=== PATIENT | male | born 1965 | race Caucasian/White ===

== ENCOUNTER 2016-11-09 23:42 | Inpatient (IN) | payer MEDICAID, OTHER ==
--- NOTE | 2016-11-10 00:43 | ED ---
Psych HPI - General Chief Complaint: Psychiatric Symptoms Stated Complaint: suicidal Time Seen by Provider: 11/10/16 00:03 Source: patient, RN notes reviewed Mode of arrival: ambulatory - History of Present Illness Initial Comments: 50-year-old male presents emergency department with need for psychiatric care. Patient has bipolar disorder. Patient has been having increased crying episodes. Patient recently moved to the area as well. Patient does not have any suicidal or homicidal thoughts at this time. Per the girlfriend the patient should've her house and instead that he needed to go to the ER patient' s stated that he was feeling overwhelmed to her. Patient this time states that he is feeling better. There has been a lot of medication changes recently. Patient currently does not have a psychiatrist in the area. Patient saw his primary care doctor today and they're currently working him up for some high blood pressure and some back issues. Patient states that he just is feeling down so he thought that he should be evaluated.Patient denies any recent fever, chills, shortness of breath, chest pain, back pain, abdominal pain, nausea vomiting, numbness or tingling, dysuria or hematuria, constipation or diarrhea, headaches or visual changes, or any other current symptoms. - Related Data Allergies Allergy/AdvReac Type Severity Reaction Status Date / Time No Known Allergies Allergy Verified 11/09/16 23:59 Review of Systems ROS Statement: Those systems with pertinent positive or pertinent negative responses have been documented in the HPI. ROS Other: All systems not noted in ROS Statement are negative. Past Medical History Past Medical History: GERD/Reflux, Hyperlipidemia, Hypertension, Thyroid Disorder Additional Past Medical History / Comment(s): chronic back pain, hypothroid History of Any Multi-Drug Resistant Organisms: None Reported Additional Past Surgical History / Comment(s): deviated septum Past Psychological History: Bipolar Smoking Status: Never smoker Past Alcohol Use History: None Reported Past Drug Use History: None Reported General Exam Limitations: no limitations General appearance: alert, in no apparent distress Head exam: Present: atraumatic, normocephalic, normal inspection Eye exam: Present: normal appearance, PERRL, EOMI. Absent: scleral icterus, conjunctival injection, periorbital swelling Respiratory exam: Present: normal lung sounds bilaterally. Absent: respiratory distress, wheezes, rales, rhonchi, stridor Cardiovascular Exam: Present: regular rate, normal rhythm, normal heart sounds. Absent: systolic murmur, diastolic murmur, rubs, gallop, clicks Extremities exam: Present: normal inspection, full ROM, normal capillary refill. Absent: tenderness, pedal edema, joint swelling, calf tenderness Back exam: Present: normal inspection Neurological exam: Present: alert, oriented X3 Psychiatric exam: Present: depressed Skin exam: Present: warm, dry, intact, normal color. Absent: rash Course Vital Signs 11/09/16 23:51 Temperature 98.2 F Pulse Rate 102 H Respiratory 18 Rate Blood Pressure 165/99 O2 Sat by Pulse 97 Oximetry Medical Decision Making - Medical Decision Making 50-year-old male presents emergency Department with a chief complaint of feeling down. This time the patient does not appear to be suffering from a acute medical emergencies. This time the patient is cleared to be evaluated by psychiatry. At this time patient will be admitted to psychiatry. - Lab Data Lab Results 11/10/16 11/10/16 Range/Units 00:15 01:45 Urine Opiates Screen Not Detected (NotDetected) Ur Oxycodone Screen Not Detected (NotDetected) Urine Methadone Screen Not Detected (NotDetected) Ur Propoxyphene Screen Not Detected (NotDetected) Ur Barbiturates Screen Not Detected (NotDetected) U Tricyclic Antidepress Not Detected (NotDetected) Ur Phencyclidine Scrn Not Detected (NotDetected) Ur Amphetamines Screen Not Detected (NotDetected) U Methamphetamines Scrn Not Detected (NotDetected) U Benzodiazepines Scrn Not Detected (NotDetected) Mills 0.3 mmol/L Urine Cocaine Screen Not Detected (NotDetected) U Marijuana (THC) Screen Not Detected (NotDetected) Disposition Clinical Impression: Depression Disposition: TRANSFER TO PSYCH HOSP/UNIT Time of Disposition: 02:52
[2016-11-10] MEDS ORDERED: MAGNESIUM HYDROXIDE 2,400 MG/10 ML CUP PO PRN (04:25)
[2016-11-10] MEDS ORDERED: MAG HYDROX/AL HYDROX/SIMETH 30 ML CUP PO PRN (04:25)
[2016-11-10] MEDS ORDERED: ZIPRASIDONE 20 MG VIAL IM PRN (04:25)
[2016-11-10] MEDS ORDERED: QUEtiapine 100 MG TAB PO PRN (04:31)
[2016-11-10] MEDS ORDERED: LORazepam 2 MG/ML SYRINGE IM PRN (04:36)
[2016-11-10] MEDS ORDERED: LORazepam 1 MG TAB PO PRN (04:36)
[2016-11-10] MEDS: ACETAMINOPHEN TAB 325 MG TAB PO PRN ×2 (05:09→10:22)
[2016-11-10] MEDS: LEVOTHYROXINE 75 MCG TAB PO SCH (05:39)
[2016-11-10] MEDS: METOPROLOL SUCCINATE (ER) 50 MG TAB.ER.24H PO SCH (08:02)
[2016-11-10] MEDS: PANTOPRAZOLE 40 MG TABLET PO SCH (08:02)
[2016-11-10] MEDS: amLODIPine 5 MG TAB PO SCH (08:02)
[2016-11-10 09:33] LABS: Basophils # (A) 0.1 k/uL (0-0.2); Basophils % (A) 1 %; CH 30.1; CHCM 32.6; Eosinophils # (A) 0.1 k/uL (0-0.7); Eosinophils % (A) 2 %; HCT 51.1 % (39.0-53.0); HDW 2.43; HGB 16.6 gm/dL (13.0-17.5); Luc # (Auto) 0.23; Luc % (Auto) 3; Lymphocytes # (A) 2.2 k/uL (1.0-4.8); Lymphocytes % (A) 32 %; MCH 30.1 pg (25.0-35.0); MCHC 32.4 g/dL (31.0-37.0); MCV 92.9 fL (80.0-100.0); Mean Platelet Volume 7.7; Monocytes # (A) 0.5 k/uL (0-1.0); Monocytes % (A) 6 %; Neutrophils % (A) 56 %; RDW 12.6 % (11.5-15.5); WBC 7.1 k/uL (3.8-10.6); WBC (Perox) 7.12
[2016-11-10 09:45] LABS: ALT 64 U/L (21-72); AST 41 U/L (17-59); Alkaline Phosphatase 80 U/L (38-126); Anion Gap 14 mmol/L; Blood Urea Nitrogen 15 mg/dL (9-20); Calcium 10.3 mg/dL (8.4-10.2); Carbon Dioxide 26 mmol/L (22-30); Chloride 102 mmol/L (98-107); Glucose 171 mg/dL (74-99); Non-African American GFR(MDRD) >60 (>60 ml/min/1.73 sqM); Potassium 4.5 mmol/L (3.5-5.1); Sodium 142 mmol/L (137-145); Total Protein 8.4 g/dL (6.3-8.2)
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
--- NOTE | 2016-11-10 19:05 | CONS ---
DATE OF CONSULTATION: 11/10/2016 REASON FOR CONSULTATION: Advice regarding hypertension, and multiple other medical issues requested by psychiatry. HISTORY OF PRESENT ILLNESS: This 50-year-old gentleman with a past history of gastroesophageal reflux disease, hypertension, hyperlipidemia, hypothyroidism, chronic back pain, history of bipolar being followed by Dr. Maria Guadalupe Joyce in the outpatient setting was admitted to the hospital for psychiatry evaluation. There is no history of fever, rigors or chills. There is no history of headache, loss of consciousness or seizures. The patient was also being worked up at the primary care physician's office. The patient recently moved to the area at this time. PAST MEDICAL HISTORY: 1. History of gastroesophageal reflux disease. 2. Hypertension. 3. Hyperlipidemia. 4. Hypothyroidism. 5. History of chronic back pain. 6. History of bipolar. Medications prior to admission include: 1. Hughes carbonate 300 mg p.o. b.i.d. 2. husk 1 capsule daily p.r.n. 3. Sudafed 30 mg daily p.r.n. 4. Trazodone 50 to 100 mg q.h.s. p.r.n. 5. Wellbutrin SR 200 mg p.o. daily. 6. Norvasc 5 mg p.o. daily. 7. Latuda 40 mg p.o. q.h.s. 8. Synthroid 75 mcg p.o. daily. 9. Omeprazole p.o. daily. 10. Toprol XL 50 mg p.o. daily. ALLERGIES: None. FAMILY HISTORY: No history of heart disease or strokes in the family. SOCIAL HISTORY: No history of smoking, no history of alcohol intake. REVIEW OF SYSTEMS: ENT: No diminished vision, no diminished hearing. CARDIOVASCULAR: No angina or palpitations. RESPIRATORY: No cough or hemoptysis. GI: No nausea. : No dysuria. Nervous system: No numbness or weakness. ALLERGIES/IMMUNOLOGY: No asthma or hayfever. HEMATOLOGY: No history of anemia. ENDOCRINE: No history of diabetes mellitus, hypothyroidism. CONSTITUTIONAL: As mentioned earlier. DERMATOLOGY: Negative. RHEUMATOLOGY: Negative. PSYCHIATRY: As mentioned earlier. PHYSICAL EXAMINATION: The patient is alert and oriented times three. Pulse is 102, blood pressure 165/99, respiratory rate 18, and temperature 98.1, pulse ox 97% on room air. Blood pressure improved to 140/93. HEENT: Conjunctivae normal. NECK: No jugular venous distention. CARDIOVASCULAR: S1, S2 muffled. RESPIRATORY: Breath sounds diminished at the bases. No rhonchi. No crackles. ABDOMEN: Soft, nontender, obese. No mass palpable. LEGS: No edema. No swelling. CENTRAL NERVOUS SYSTEM: Higher function as mentioned. Moves all 4 limbs. No focal motor or sensory deficit. LYMPHATICS: No lymph nodes palpable in the neck, axillae or groin. SKIN: No ulcer, rash or bleeding. LABS: CBC within normal limits. Glucose 171, total protein 8.4. ASSESSMENT: 1. Hypertension. 2. Hyperlipidemia. 3. Hypothyroidism. 4. Chronic back pain. 5. Degenerative joint disease. 6. Hypothyroidism. 7. Gastroesophageal reflux disease. 8. History of bipolar. 9. Increased random blood sugar. 10. Obesity with body mass index of 41.3. 11. FULL CODE. RECOMMENDATIONS AND DISCUSSION: In this 50-year-old gentleman who presented with multiple complex medical issues at this time I would recommend otherwise, the patient admitted with multiple medical problems, at this time I recommend to continue current medications, continue symptomatic treatment, monitor fasting blood glucose, hemoglobin A1c, rule out the possibility of diabetes mellitus. Otherwise, I would also recommend Accu-Cheks. Full work-up can be done in the outpatient setting. Patient already on beta blockers. I recommend Norvasc. Continue the home medications. Monitor the patient closely. Further recommendations to follow. A copy of this dictation is being forwarded to Dr. Maria Guadalupe Joyce who is the primary care physician. Please recommend the patient to follow up with Dr. Joyce after discharge. CASSIDYD
[2016-11-10] MEDS: LITHIUM CARBONATE ER 450 MG TABLET.ER PO SCH (20:03)
[2016-11-10] MEDS ORDERED: risperiDONE ODT 1 MG TAB PO SCH (21:00)
[2016-11-11] MEDS: LEVOTHYROXINE 75 MCG TAB PO SCH (06:05)
[2016-11-11] MEDS: PANTOPRAZOLE 40 MG TABLET PO SCH (09:30)
[2016-11-11] MEDS: amLODIPine 5 MG TAB PO SCH (09:30)
[2016-11-11] MEDS: LITHIUM CARBONATE ER 450 MG TABLET.ER PO SCH ×2 (09:31→21:07)
[2016-11-11] MEDS: METOPROLOL SUCCINATE (ER) 50 MG TAB.ER.24H PO SCH (09:31)
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
[2016-11-11 15:04] LABS: Hemoglobin A1C 5.5 % (4.2-6.1)
[2016-11-11] MEDS: ACETAMINOPHEN TAB 325 MG TAB PO PRN (16:35)
[2016-11-11] MEDS: clonazePAM 0.5 MG TAB PO SCH (21:07)
[2016-11-11] MEDS: risperiDONE ODT 2 MG TAB PO SCH (21:08)
[2016-11-12] MEDS: LEVOTHYROXINE 75 MCG TAB PO SCH (06:19)
[2016-11-12] MEDS: ACETAMINOPHEN TAB 325 MG TAB PO PRN (06:29)
[2016-11-12] MEDS: PANTOPRAZOLE 40 MG TABLET PO SCH (07:59)
[2016-11-12] MEDS: LITHIUM CARBONATE ER 450 MG TABLET.ER PO SCH ×2 (07:59→20:40)
[2016-11-12] MEDS: METOPROLOL SUCCINATE (ER) 50 MG TAB.ER.24H PO SCH (07:59)
[2016-11-12] MEDS: amLODIPine 5 MG TAB PO SCH (07:59)
[2016-11-12 10:08] LABS: Lithium 0.7 mmol/L; Potassium 4.6 mmol/L (3.5-5.1)
--- NOTE | 2016-11-12 10:19 | P.PN ---
Progress Note - Text Interval history: The patient was laying in his bed with C-PAP machine,,,did follow-me to interview office The patient stated that he had good visit with his mother ,sister and girl friend ,he endorses having anxiety this Am because "I WAS DELUSIONAL DURING BREAKFAST ,I WAS SEEING PEOPLE FACES FROM MY PAST", patient stated that he is able to know that "WAS NOT REALITY",he reports that he has some anxiety because it did remind him of his first psychotic break at age 29,still reporting racing thoughts and irrational thinking "I HAVE TO BE PREPARED FOR ANY QUESTION ,I AM KEEPING NOTES FOR EVERYTHING ",he stated that he does not participate in group because "I AM TRYING TO ANALYZE MYSELF" PER NURSING STAFF:patient slept 6 hours last night ,no participation in groups, no interaction with other peers Mental status exam: The patient is alert he does not appear lethargic , He is dressed in his own clothing. He is calmly seated in the chair.,he was cooperative ,speech is coherent ,at times circumstantial ,bizarre comments , reports "JAMIE ROGELIO EXP."this morning Insight and judgment are impaired. have . He demonstrates no aggressive behavior . He is reporting no auditory or visual hallucinations ,seems very paranoia and suspicious and preoccupied,he is reporting no suicidal or homicidal ideation. Plan: Will increase Risperdal ,will check lithium and lytes ,encourage participation in milieu ,will continue inpatient to monitor his thought disorder and any side-effect from medication
[2016-11-12] MEDS: clonazePAM 0.5 MG TAB PO SCH (20:40)
[2016-11-12] MEDS: risperiDONE ODT 2 MG TAB PO SCH (21:04)
[2016-11-13] MEDS: ACETAMINOPHEN TAB 325 MG TAB PO PRN (04:45)
[2016-11-13] MEDS: LEVOTHYROXINE 75 MCG TAB PO SCH (05:34)
[2016-11-13 08:00] LABS: Glucose,Whole Blood 108 mg/dL (75-99)
--- NOTE | 2016-11-13 08:07 | P.PN ---
Progress Note - Text Interval history: The patient was in library and followed me to the office , reports that he slept from 9 PM and had,,did follow-me to interview office The patient reports that he has been up since 4 AM ,reports feeling tired this morning and "BORED",he denies any current depressive symptoms ,denies any psychotic features however he presents with odd thinking and odd behavior , stated that he is not interested in groups because:I NEED INDIVIDUAL THERAPY TO ANALYSE ME A CASE STUDY" LITHIUM LEVEL:0.7 VITALS:stable Mental status exam: The patient is alert he does not appear lethargic , He is dressed in his own clothing. He is calmly seated in the chair.,he was cooperative ,speech is coherent ,at times circumstantial ,bizarre comments , He demonstrates no aggressive behavior . He is reporting no auditory or visual hallucinations ,denies any delusion or ideas of reference or thought insertion,he is reporting no suicidal or homicidal ideation.,insight is improving Plan: Continue current medication ,encourage participation in milieu ,will continue inpatient to monitor his thought disorder and any side-effect from medication
[2016-11-13] MEDS: amLODIPine 5 MG TAB PO SCH (08:41)
[2016-11-13] MEDS: LITHIUM CARBONATE ER 450 MG TABLET.ER PO SCH ×2 (08:41→20:52)
[2016-11-13] MEDS: METOPROLOL SUCCINATE (ER) 50 MG TAB.ER.24H PO SCH (08:41)
[2016-11-13] MEDS: PANTOPRAZOLE 40 MG TABLET PO SCH (08:44)
[2016-11-13] MEDS ORDERED: risperiDONE 2 MG TAB PO SCH (09:00)
[2016-11-13] MEDS: risperiDONE ODT 2 MG TAB PO SCH ×2 (09:56→20:52)
[2016-11-13] MEDS: clonazePAM 0.5 MG TAB PO SCH (20:51)
[2016-11-14] MEDS: LEVOTHYROXINE 75 MCG TAB PO SCH (05:53)
[2016-11-14] MEDS: LITHIUM CARBONATE ER 450 MG TABLET.ER PO SCH ×2 (09:00→20:49)
[2016-11-14] MEDS: PANTOPRAZOLE 40 MG TABLET PO SCH (09:00)
[2016-11-14] MEDS: amLODIPine 5 MG TAB PO SCH (09:00)
[2016-11-14] MEDS: METOPROLOL SUCCINATE (ER) 50 MG TAB.ER.24H PO SCH (09:00)
[2016-11-14] MEDS: risperiDONE ODT 2 MG TAB PO SCH ×2 (09:01→20:49)
[2016-11-14] MEDS ORDERED: FLUTICASONE 50MCG/SPRAY NASAL 16GM EA NOSTRIL PRN (12:25)
--- NOTE | 2016-11-14 12:38 | P.PN ---
Progress Note - Text Interval history: The patient was in library and followed me to the office , he stated that he is having slurred speech and nasal congestion ,very somatic preoccupied ,he reports that he is having hard time to use his C-PAP because "SOMEONE NEED TO FIX MASK",slept 6 hours last night but feeling more tired and fatigued ,said that he has been napping "FOUR OR FIVE TIMES",denies any delusion ,paranoia or idea of reference ,does not endorse any suicidal or homicidal ideation ,he attended two groups since yesterday VITALS:stable Mental status exam: The patient is alert he does not appear lethargic , speech is not slurred, He is dressed in his own clothing. He is calmly seated in the chair.,he was cooperative ,speech is coherent ,at times circumstantial ,bizarre comments , He demonstrates no aggressive behavior . He is reporting no auditory or visual hallucinations ,denies any delusion or ideas of reference or thought insertion,he is reporting no suicidal or homicidal ideation.,insight is improving Plan: Decrease Risperdal and Klonopin to minimize sedation ,encourage participation in milieu ,will continue inpatient to monitor his thought disorder and any side-effect from medication
[2016-11-14] MEDS: clonazePAM 0.5 MG TAB PO SCH (20:49)
[2016-11-15] MEDS: ACETAMINOPHEN TAB 325 MG TAB PO PRN ×2 (03:18→15:43)
[2016-11-15] MEDS: LEVOTHYROXINE 75 MCG TAB PO SCH (06:29)
--- NOTE | 2016-11-15 08:25 | P.PN ---
Progress Note - Text Interval history: The patient was in hallway and followed me to the office , he stated that he did participate in 2 groups yesterday ,his girlfriend parent did visit him yesterday,denies any psychotic features , did not endorse any bizarre thoughts or comment, does not isolate himself as before ,reports feeling tired , sluggish and "I AM NOT ABLE TO TALK A LOT ON PHONE BEFORE ,MY MIND IS NOT RACING " PER NURSING STAFF ,slept 5 hours ,having difficulty using his C-pap VITALS:stable Mental status exam: The patient is alert he does not appear lethargic He is dressed in his own clothing. He is calmly seated in the chair.,he was cooperative ,speech is non spontaneous but coherent ,affect is flat. He demonstrates no aggressive behavior . He is reporting no auditory or visual hallucinations ,denies any delusion or ideas of reference or thought insertion ,he is reporting no suicidal or homicidal ideation.,insight is improving Plan: Discontinue AM Risperdal to minimize sedation ,encourage participation in milieu ,will continue inpatient to monitor his thought disorder and any side- effect from medication,family meeting today with his girlfriend to discuss post- discharge plan
[2016-11-15] MEDS ORDERED: risperiDONE ODT 1 MG TAB PO SCH (09:00)
[2016-11-15] MEDS: LITHIUM CARBONATE ER 450 MG TABLET.ER PO SCH ×2 (09:23→20:05)
[2016-11-15] MEDS: METOPROLOL SUCCINATE (ER) 50 MG TAB.ER.24H PO SCH (09:23)
[2016-11-15] MEDS: amLODIPine 5 MG TAB PO SCH (09:23)
[2016-11-15] MEDS: PANTOPRAZOLE 40 MG TABLET PO SCH (09:23)
[2016-11-15] MEDS: clonazePAM 0.5 MG TAB PO SCH (20:05)
[2016-11-15] MEDS: risperiDONE ODT 2 MG TAB PO SCH (20:06)
[2016-11-16 01:06] VITALS: TEMP 97.7
[2016-11-16] MEDS: ACETAMINOPHEN TAB 325 MG TAB PO PRN ×2 (01:09→04:52)
[2016-11-16] MEDS: LEVOTHYROXINE 75 MCG TAB PO SCH ×2 (04:52→06:04)
[2016-11-16] MEDS: amLODIPine 5 MG TAB PO SCH (08:08)
[2016-11-16] MEDS: LITHIUM CARBONATE ER 450 MG TABLET.ER PO SCH (08:08)
[2016-11-16] MEDS: METOPROLOL SUCCINATE (ER) 50 MG TAB.ER.24H PO SCH (08:08)
[2016-11-16] MEDS: PANTOPRAZOLE 40 MG TABLET PO SCH (08:08)
[2016-11-16 08:10] VITALS: BP 114/66; PULSE 79; RESP 16
[2016-11-16] MEDS ORDERED: clonazePAM 0.5 MG TAB PO PRN (09:25)
--- NOTE | 2016-11-17 11:51 | DS ---
DATE OF ADMISSION: 11/10/2016 DATE OF DISCHARGE: 11/16/2016 CONSULT PHYSICIAN: Oswald. Consulting provider is Dr. Gonzalez. Consult reason for medical management. Brief summary of the admission: Patient is 50-year-old male with history of bipolar disorder. He presented to the emergency room for depression, mood swing and paranoia. Patient stated that he was stable up to 3 or 4 weeks ago, and he started having trouble sleeping at night, racing thought, easily distraction, paranoia, suspicious, having difficulty to trust people, especially the people that he does not know, but he denied any suicidal or homicide ideation. Patient stated that for the last 3 weeks prior to his admission he was on edge, irritable, not sleeping at all at night, poor appetite with weight loss of 13 pounds over 3 weeks, easily overwhelmed with low frustration tolerance. For further history and physical examination, please refer that to my initial history and physical exam. HOSPITAL COURSE: The patient was admitted to the mental health unit on a voluntary basis. Once he was admitted to the mental health unit, I did review his psychiatric symptoms and his psychiatric medication. Patient was on lithium 300 twice a day. Blood lithium level was 0.3, trazodone 50 to 100 mg at bedtime, Latuda 40 mg at bedtime and Wellbutrin 400 mg daily. I did discuss with the patient treatment option and he did agree to discontinue Wellbutrin and Latuda and time to put him on different atypical antipsychotic and to increase his lithium. So we did titrate lithium up to 450 twice a day. His blood lithium level was 0.7 on this dose. We gradually increased Risperdal up to 4 mg at bedtime. Patient was having restless feeling, especially at night and he was complaining of interrupted sleep; however, he stated that he has sleep apnea and he has been noncompliant with CPAP. I added a low-dose of Klonopin to decrease that restless feeling. Initially, patient was not participating in group therapy. Even having difficulty to interact with other patient, but on November 13, patient started to show improvement as he started to get less paranoia, participating in group therapy, even in the last group notes, patient was attending, participating at time hyperverbal but easy to direct, at time intrusive, but does respect limit setting. We did have family meeting with his girlfriend of 7 years Marii and I did discuss with her the diagnosis as she was concerned that I diagnosed the patient with schizoaffective disorder and I did answer her and explained to her all the psychotropic medications and the treatment plan and I discussed discharge planning. She did report that she does feel that the patient is much better and he is not hyperverbal, "He was hypomanic before he came here, but now he is much better." Mental status examination at the time of the discharge: Patient is alert, he was sitting calmly, good eye contact. Speech is less circumstantial, decreased in productivity. His thought process mainly linear; however, at times he gets circumstantial but very easy to redirect. He is reporting no homicidal or suicidal ideation, intent or plan. He does not feel hopeless. He does not have any evidence of hypomania or mahendra. There is no evidence of psychosis. His insight and judgment improving. There is no verbal or physical aggression observed. DISCHARGE DIAGNOSES: 1. Schizoaffective disorder, bipolar type in partial remission with medication. 2. Sleep apnea. 3. Hypertension, hyperlipidemia, hypothyroidism, degenerative joint disease, gastroesophageal reflex disease. The lab at the time of his discharge, CBC with ( ) are normal. Electrolytes normal. His fasting blood at the time of admission was 171; however, it did go down to 108. We did check his hemoglobin A1c, and it is normal, it is 5.5. He lithium level is 0.7. Vital signs at the time of the discharge, temperature 97.7, pulse 79, respirations 16, blood pressure 114/66. DISCHARGE INSTRUCTION: 1. Patient will be discharged from the mental health unit today to return back home. 2. Patient to continue outpatient counseling and he has an outpatient appointment at [facility] on November 18 at 3 p.m. 3. Patient has to see his primary care provider, Maria Guadalupe Joyce in 1 or 2 days for medical management of his medical problem. 4. I do recommend the patient will be referred to Sleep Clinic to rule out narcolepsy and also to evaluate the severity of his sleep apnea. 5. I do recommend to monitor closely his lithium level and thyroid function test and electrolyte on a regular basis. Patient was given one-month supply for lithium extended release 450 twice a day, Risperdal 4 mg at bedtime, Klonopin 0.25 at bedtime as needed for restless feeling or insomnia. Patient does not report any hopeless or helpless feeling. Does not have access to firearms. Denied any suicidal or homicidal ideation. There is no eminent safety risk and he is appropriate for transition to outpatient care. He was instructed to return to the emergency room if any acute safety concern. Patient's condition at the time of the discharge, stable.
== END 2016-11-16 12:40 | disposition home or self-care (01) | DRG 885 ==
LOC: EC 23:42 → 3MHU 11-10 02:56
PROVIDERS: ADMIT Psychiatry & Neurology Psychiatry; ATTEND Psychiatry & Neurology Psychiatry
DX: F25.0 Schizoaffective disorder, bipolar type (principal); Z68.41 Body mass index [BMI] 40.0-44.9, adult; I10 Essential (primary) hypertension; F22 Delusional disorders; E03.9 Hypothyroidism, unspecified; E66.9 Obesity, unspecified; E78.5 Hyperlipidemia, unspecified; F41.9 Anxiety disorder, unspecified; G47.30 Sleep apnea, unspecified; G89.29 Other chronic pain; K21.9 Gastro-esophageal reflux disease without esophagitis; M19.90 Unspecified osteoarthritis, unspecified site; Z79.899 Other long term (current) drug therapy; Z91.19 Patient's noncompliance with other medical treatment and regimen
CPT/HCPCS: 36415; 80051; 80053; 80178; 80306; 82075; 82947; 83036; 84443; 85025; 93005; 99285

== ENCOUNTER 2016-12-01 11:50 | Emergency (ER) | payer OTHER ==
[2016-12-01 12:06] VITALS: RESP 18; TEMP 97.9
--- NOTE | 2016-12-01 12:20 | ED ---
Psych HPI - General Chief Complaint: Psychiatric Symptoms Stated Complaint: mental health Time Seen by Provider: 12/01/16 12:10 Source: patient, RN notes reviewed Mode of arrival: ambulatory - History of Present Illness Initial Comments: 50 yo male presents to the Er with cc of racing thoughts and pressured decision making. Patient does suffer from bipolarpolar disorder and schizoaffective disorder. Patient states that he does not believe his medications are working. Patient denies any suicidal or homicidal ideation. Patient states that he went to see a psychiatrist but she was not there so he came here. Patient states that he just needs something done with these medications. Patient states he is not currently having any other symptoms at this time.Patient denies any recent fever, chills, shortness of breath, chest pain, back pain, abdominal pain, nausea vomiting, numbness or tingling, dysuria or hematuria, constipation or diarrhea, headaches or visual changes, or any other current symptoms. - Related Data Home Medications Medication Instructions Recorded Confirmed Levothyroxine Sodium [Synthroid] 75 mcg PO DAILY 11/10/16 12/01/16 Metoprolol Succinate (ER) [Toprol 50 mg PO DAILY 11/10/16 12/01/16 XL] Omeprazole 20 mg PO DAILY 11/10/16 12/01/16 amLODIPine [Norvasc] 5 mg PO DAILY 11/10/16 12/01/16 Fluticasone Nasal [place] [Flonase 2 spr EA NOSTRIL HS 12/01/16 12/01/16 Nasal [place]] Previous Rx's Medication Instructions Recorded [place] Carbonate ER [Lithobid] 450 mg PO BID 30 Days 11/16/16 clonazePAM [KlonoPIN] 0.25 mg PO HS PRN #15 tab 11/16/16 risperiDONE ODT [RisperDAL M-TAB] 4 mg PO HS 30 Days 11/16/16 diphenhydrAMINE [Benadryl] 25 mg PO BID #30 capsule 12/01/16 Allergies Allergy/AdvReac Type Severity Reaction Status Date / Time No Known Allergies Allergy Verified 12/01/16 13:29 Review of Systems ROS Statement: Those systems with pertinent positive or pertinent negative responses have been documented in the HPI. ROS Other: All systems not noted in ROS Statement are negative. Past Medical History Past Medical History: GERD/Reflux, Hyperlipidemia, Hypertension, Thyroid Disorder Additional Past Medical History / Comment(s): chronic back pain, hypothyroid History of Any Multi-Drug Resistant Organisms: None Reported Additional Past Surgical History / Comment(s): deviated septum Past Anesthesia/Blood Transfusion Reactions: No Reported Reaction Past Psychological History: Bipolar Smoking Status: Never smoker Past Alcohol Use History: None Reported Additional Past Alcohol Use History / Comment(s): Pt. denies any alcohol use. Past Drug Use History: None Reported Additional Drug Use History / Comment(s): Pt. denies any current or a history of drug use. UDS negative - Past Family History Father Family Medical History: No Reported History Mother Family Medical History: No Reported History General Exam Limitations: no limitations General appearance: alert, in no apparent distress Head exam: Present: atraumatic, normocephalic, normal inspection Respiratory exam: Present: normal lung sounds bilaterally. Absent: respiratory distress, wheezes, rales, rhonchi, stridor Cardiovascular Exam: Present: regular rate, normal rhythm, normal heart sounds. Absent: systolic murmur, diastolic murmur, rubs, gallop, clicks Neurological exam: Present: alert, oriented X3, CN II-XII intact Psychiatric exam: Present: agitated Skin exam: Present: warm, dry, intact, normal color. Absent: rash Course Vital Signs 12/01/16 12/01/16 12:02 15:02 Temperature 97.9 F Pulse Rate 76 66 Respiratory 18 18 Rate Blood Pressure 137/81 174/98 O2 Sat by Pulse 98 97 Oximetry Medical Decision Making - Medical Decision Making 50-year-old male presents to the emergency department seeking medication adjustment. Patient does admit to racing thoughts and pressured decision- making. This patient does not appear to be suffering acute medical emergencies. Sensation is clear to be evaluated by psychiatry. Patient was evaluated by psychiatry here. This and they are making discharged home. Recommend Benadryl to help with the patient's side effects. Patient agreed to this plan. He does contract all questions have been answered. He will be discharged home. - Lab Data Lab Results 12/01/16 12/01/16 Range/Units 12:48 13:12 Urine Opiates Screen Not Detected (NotDetected) Ur Oxycodone Screen Not Detected (NotDetected) Urine Methadone Screen Not Detected (NotDetected) Ur Propoxyphene Screen Not Detected (NotDetected) Ur Barbiturates Screen Not Detected (NotDetected) U Tricyclic Antidepress Not Detected (NotDetected) Ur Phencyclidine Scrn Not Detected (NotDetected) Ur Amphetamines Screen Not Detected (NotDetected) U Methamphetamines Scrn Not Detected (NotDetected) U Benzodiazepines Scrn Not Detected (NotDetected) [place] 0.6 mmol/L Urine Cocaine Screen Not Detected (NotDetected) U Marijuana (THC) Screen Not Detected (NotDetected) Disposition Clinical Impression: Depression Disposition: HOME SELF-CARE Condition: Stable Instructions: Depression (ED) Additional Instructions: Please use medication as discussed. Please follow up with family doctor if symptoms have not improved over the next two days. Please return to the emergency room if your symptoms increase or worsen or for any other concerns. Prescriptions: diphenhydrAMINE [Benadryl] 25 mg PO BID #30 capsule Referrals: Maria Guadalupe Joyce MD [Primary Care Provider] - 1-2 days Time of Disposition: 15:23
[2016-12-01 15:04] VITALS: BP 174/98; PULSE 66
== END 2016-12-01 15:32 | disposition home or self-care (01) ==
LOC: EC 11:50
DX: F32.9 Major depressive disorder, single episode, unspecified (principal); I10 Essential (primary) hypertension; K21.9 Gastro-esophageal reflux disease without esophagitis; E03.9 Hypothyroidism, unspecified; Z79.52 Long term (current) use of systemic steroids; Z79.899 Other long term (current) drug therapy
CPT/HCPCS: 36415; 80178; 80306; 82075; 99285

== ENCOUNTER 2017-01-05 19:51 | Emergency (ER) | payer MEDICAID, OTHER ==
[2017-01-05 20:13] VITALS: BP 143/84; PULSE 80; RESP 18; TEMP 98
--- NOTE | 2017-01-05 20:26 | ED ---
General Adult HPI - General Chief complaint: ENT Stated complaint: poss toxic paint fumes Time Seen by Provider: 01/05/17 20:17 Source: patient, RN notes reviewed Mode of arrival: ambulatory Limitations: no limitations - History of Present Illness Initial comments: 51-year-old male presents emergency Department chief complaint of pain fumes exposure. 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 Patient states that he's having difficulty with nasal congestion sinus pressure and ALLERGIES related to the fumes. Patient states that his work will not give him a respirator or mask. Patient states he cannot wear CPAP machine at nighttime because of the congestion. He has been using Flonase and Benadryl with no relief. Patient states he does feel better when he is not there states is gets worse every day he goes to work. - Related Data Home Medications Medication Instructions Recorded Confirmed Levothyroxine Sodium [Synthroid] 75 mcg PO DAILY 11/10/16 12/01/16 Metoprolol Succinate (ER) [Toprol 50 mg PO DAILY 11/10/16 12/01/16 XL] Omeprazole 20 mg PO DAILY 11/10/16 12/01/16 amLODIPine [Norvasc] 5 mg PO DAILY 11/10/16 12/01/16 Fluticasone Nasal [place] [Flonase 2 spr EA NOSTRIL HS 12/01/16 12/01/16 Nasal [place]] Previous Rx's Medication Instructions Recorded [place] Carbonate ER [Lithobid] 450 mg PO BID 30 Days 11/16/16 clonazePAM [KlonoPIN] 0.25 mg PO HS PRN #15 tab 11/16/16 risperiDONE ODT [RisperDAL M-TAB] 4 mg PO HS 30 Days 11/16/16 diphenhydrAMINE [Benadryl] 25 mg PO BID #30 capsule 12/01/16 methylPREDNISolone [Medrol Dose 4 mg PO DIRECTED #1 pack 01/05/17 Pack] Allergies Allergy/AdvReac Type Severity Reaction Status Date / Time No Known Allergies Allergy Verified 01/05/17 20:13 Review of Systems ROS Statement: Those systems with pertinent positive or pertinent negative responses have been documented in the HPI. ROS Other: All systems not noted in ROS Statement are negative. Past Medical History Past Medical History: GERD/Reflux, Hyperlipidemia, Hypertension, Sleep Apnea/ CPAP/BIPAP, Thyroid Disorder Additional Past Medical History / Comment(s): chronic back pain, hypothyroid History of Any Multi-Drug Resistant Organisms: None Reported Additional Past Surgical History / Comment(s): deviated septum Past Anesthesia/Blood Transfusion Reactions: No Reported Reaction Past Psychological History: Bipolar Smoking Status: Never smoker Past Alcohol Use History: None Reported Additional Past Alcohol Use History / Comment(s): Pt. denies any alcohol use. Past Drug Use History: None Reported Additional Drug Use History / Comment(s): Pt. denies any current or a history of drug use. UDS negative - Past Family History Father Family Medical History: No Reported History Mother Family Medical History: No Reported History General Exam Limitations: no limitations General appearance: alert, in no apparent distress Head exam: Present: atraumatic, normocephalic, normal inspection Eye exam: Present: normal appearance, PERRL, EOMI. Absent: scleral icterus, conjunctival injection, periorbital swelling ENT exam: Present: normal oropharynx, mucous membranes moist, TM's normal bilaterally, normal external ear exam. Absent: normal exam (Inflammation of the nostrils noted in inflamed turbinates, congestion) Neck exam: Present: normal inspection, full ROM. Absent: tenderness, meningismus, lymphadenopathy Respiratory exam: Present: normal lung sounds bilaterally. Absent: respiratory distress, wheezes, rales, rhonchi, stridor Cardiovascular Exam: Present: regular rate, normal rhythm, normal heart sounds. Absent: systolic murmur, diastolic murmur, rubs, gallop, clicks Skin exam: Present: warm, dry, intact, normal color. Absent: rash Course Vital Signs 01/05/17 20:10 Temperature 98 F Pulse Rate 80 Respiratory 18 Rate Blood Pressure 143/84 O2 Sat by Pulse 97 Oximetry Medical Decision Making - Medical Decision Making 51-year-old male presented for fume exposure at work. Patient is having congestion ALLERGY type symptoms related to the fumes. Patient does need a respirator though work is not providing this. Patient will be referred to S for follow-up and care of getting him a respirator mask at work. Patient was placed on a steroid for ALLERGIES at this time as he is currently using Benadryl and Flonase. Disposition Clinical Impression: Environmental allergies, Inhalation of noxious fumes Disposition: HOME SELF-CARE Condition: Stable Instructions: Allergies (ED) Additional Instructions: Please return to the Emergency Department if symptoms worsen or any other concerns. Follow up with [facility] for further care and treatment Prescriptions: methylPREDNISolone [Medrol Dose Pack] 4 mg PO DIRECTED #1 pack Referrals: Maria Guadalupe Joyce MD [Primary Care Provider] - 1-2 days Time of Disposition: 20:26
== END 2017-01-05 20:37 | disposition home or self-care (01) ==
LOC: EC 19:51
DX: J68.9 Unspecified respiratory condition due to chemicals, gases, fumes and vapors (principal); K21.9 Gastro-esophageal reflux disease without esophagitis; I10 Essential (primary) hypertension; E03.9 Hypothyroidism, unspecified; Z79.899 Other long term (current) drug therapy
CPT/HCPCS: 99283

== ENCOUNTER → 2017-01-12 | Outpatient (CLI) | payer OTHER ==
--- NOTE | 2017-01-12 20:48 | CONS ---
DATE OF CONSULTATION: 01/12/2017 This patient is 51 diagnosed having sleep apnea more than 15 years ago. Has been on treatment, his most recent study was done through a sleep center in ( [place], [place]. Currently he has [employer] ( ) on a [employer] unit which is set at a pressure of 11 cm of water. The patient was given also a Mirage Quattro full face mask. He tells me that he is unable to breathe through the machine. He is having some issues with nasal congestion and stuffiness and he has been utilizing a combination of Flonase and antihistamines, [id number] and recently was given a Medrol Dosepak. His history is not much reliable knowing that he seems to have underlying psychotic disorder/schizophrenia/bipolar disorder. However, I checked his compliance data and the patient has not been using the machine adequately and he is also not putting adequate hours on the CPAP therapy and he tells me that the pressure is sometimes adequate at other times high and I am unable to fully establish an impression as far as CPAP needs. I inspected this patient's full face mask and he does have good fit without any significant leaks around his mask. Unfortunately, I do not have any of his sleep studies that were done earlier on him. He does however, have difficulty with obstructive sleep apnea and he reports to snore, stops breathing and he suffers from chronic tiredness, fatigue and sleepiness if he does not use his CPAP machine. He wakes up with a dry mouth in addition and he gets frequent urination and wakes up frequently in the middle of night gasping for air. Typically goes to bed around 8:30 p.m., wakes up at 4:15 a.m. in the morning and he is averaging around 7 to 8 hours of sleep. His Montpelier score is at 24. He states to have gained around 10 pounds over the past one year. PAST MEDICAL HISTORY: 1. Obstructive sleep apnea. 2. Obesity. 3. Schizophrenia/bipolar disorder. 4. Hypertension. 5. Chronic allergic rhinitis and nasal congestion and stuffiness. 6. Heartburn. Surgical history includes surgery for deviated nasal septum. Drug allergies are none. Outpatient medication list includes: 1. [place] 300 milligrams p.o. daily in the morning and 600 at nighttime. 2. Risperdal 4 mg at bedtime. 3. Metoprolol. 4. Amlodipine. 5. Benadryl as needed. 6. Omeprazole 20 mg p.o. daily. SOCIAL HISTORY: Nonsmoker. No history of alcoholism. No history of IV drugs. FAMILY HISTORY: Negative for sleep apnea. REVIEW OF SYSTEMS: Twelve-point review of systems was done. Positive findings were all mentioned above in the history of present illness. No other complaints other than the things mentioned above. BP is 127/74, pulse 76, respirations 16, temperature 98.2, saturation 96% on room air. BMI is 46. Weight is 312. Height is 5 foot 9. Neck size 19-3/4 inches. GENERAL APPEARANCE: Calm, comfortable. HEENT: Short neck, crowding of the posterior pharynx. There is no goiter, neck masses. LUNGS: Clear to auscultation. HEART: Heart sounds are regular rate and rhythm. Normal S1, S2. No murmurs. ABDOMEN: Soft, nontender, no organomegaly. EXTREMITIES: No cyanosis, edema or clubbing. IMPRESSION: 1. Symptomatic obstructive sleep apnea. Difficulty in tolerating newer CPAP unit which is set at a pressure of 11 cm of water. The patient is a Mirage Quattro full face mask. 2. Hypersomnia with Montpelier score of 24. 3. Obesity with a body mass index of 46. 4. Bipolar disorder. 5. Schizophrenia. 6. Hypertension. 7. Allergic rhinitis. 8. History of deviated nasal septum. PLAN: 1. Continue using the full face Mirage Quattro mask. The fit is good. 2. Change the CPAP setting to an automatic mode with a minimum pressure of 5, maximum pressure of 20 with a C-Flex of 3. 3. Offer this patient nasal steroids and antihistamines. 4. Obtain copies of his previous study that was done in the sleep center in ( ). 5. See me back in 30 days to assess clinical response and compliance. 6. Will continue to follow.
== END ==
LOC: SLEEP 16:46
PROVIDERS: ATTEND Internal Medicine Critical Care Medicine
DX: G47.33 Obstructive sleep apnea (adult) (pediatric) (principal); G47.10 Hypersomnia, unspecified; E66.9 Obesity, unspecified; I10 Essential (primary) hypertension; F31.9 Bipolar disorder, unspecified; F20.9 Schizophrenia, unspecified; J30.9 Allergic rhinitis, unspecified; Z68.42 Body mass index [BMI] 45.0-49.9, adult; Z79.899 Other long term (current) drug therapy
CPT/HCPCS: 99211